=== PATIENT | female | born 1965 | race Caucasian/White ===

== ENCOUNTER 2016-08-14 13:52 | Emergency (ER) | payer OTHER ==
[2016-08-14 16:32] VITALS: BP 162/103
--- NOTE | 2016-08-14 16:40 | UC ---
FLU HPI - HPI Summary HPI Summary: pt c/o sinus pressure and headache that began this morning. Has known exposure to influenza. Pt took OTC tylenol this morning and CASTELLANOS has resolved - History of Current Complaint Chief Complaint: UCGeneralIllness Stated Complaint: HEADACHE,SINUS,TIRED,ACHY Time Seen by Provider: 08/14/16 16:27 Hx Obtained From: Patient ?: No Onset/Duration: Sudden Onset, Lasting Hours Severity Currently: Mild Severity Initially: Mild Associated Signs & Symptoms: Positive: Headache Related Hx: Possible Flu/Infectious Exposure - Allergy/Home Medications Allergies/Adverse Reactions: Allergies Allergy/AdvReac Type Severity Reaction Status Date / Time No Known Allergies Allergy Verified 08/14/16 16:32 PMH/Surg Hx/FS Hx/Imm Hx Previously Healthy: Yes Endocrine History Of: Reports: Thyroid Disease - cysts - Surgical History Surgical History: Yes Surgery Procedure, Year, and Place: hysterectomy. novasure ablation. left ovary - Family History Known Family History: Positive: Cardiac Disease - Social History Alcohol Use: Rare Substance Use Type: None Smoking Status (MU): Never Smoked Tobacco - Immunization History Most Recent Influenza Vaccination: none Review of Systems Constitutional: Negative Skin: Negative Eyes: Negative ENT: Other - sinus pressure Respiratory: Negative Cardiovascular: Negative Gastrointestinal: Negative Genitourinary: Negative Motor: Negative Neurovascular: Negative Musculoskeletal: Negative Neurological: Negative Psychological: Negative All Other Systems Reviewed And Are Negative: Yes Physical Exam Triage Information Reviewed: Yes Appearance: Well-Appearing Vital Signs: Initial Vital Signs Temp 98.7 F 08/14/16 16:26 Pulse 66 08/14/16 16:26 Resp 17 08/14/16 16:26 BP 162/103 08/14/16 16:26 Pulse Ox 100 08/14/16 16:26 Eye Exam: Normal ENT Exam: Normal Neck exam: Normal Respiratory Exam: Normal Cardiovascular Exam: Normal Musculoskeletal Exam: Normal Neurological Exam: Normal Psychological Exam: Normal Skin Exam: Normal Flu Course/Dx - Differential Dx/Diagnosis Differential Diagnosis/HQI/PQRI: Influenza, Other - viral syndrome Provider Diagnoses: viral syndrome Discharge - Discharge Plan Condition: Stable Disposition: HOME Patient Education Materials: Viral Syndrome (ED) Referrals: Lisette Tim MD [Primary Care Provider] -
== END 2016-08-14 16:46 | disposition home or self-care (01) ==
LOC: UCCORT 13:52
DX: B34.9 Viral infection, unspecified (principal)
CPT/HCPCS: 99212; G0463